=== PATIENT | male | born 1960 | race Caucasian/White ===

== ENCOUNTER 2022-08-06 02:20 | Inpatient (IN) | payer MEDICARE, MEDICAID, SELFPAY ==
[2022-08-06] VITALS (17 sets, daily range): BP systolic 65–118; BP diastolic 23–70; PULSE 49–107; RESP 8–18; TEMP 36.8–37.1; O2SAT 97–100; BMI 18.6
--- NOTE | ~2022-08-06 | XR_ITS ---
EXAMINATION: XR CHEST CLINICAL INFORMATION: Chest pain COMPARISON: None TECHNIQUE: Frontal view of the chest was obtained. FINDINGS: Cardiac leads overlie the chest. The lungs are well expanded. There is no focal consolidation, edema, or effusion. No pneumothorax. The cardiomediastinal silhouette is within normal limits. No acute osseous abnormality. XR/XR chest 1V IMPRESSION: No acute pulmonary disease.
--- NOTE | ~2022-08-06 | CT_ITS ---
EXAMINATION: CT CHEST WITH CONTRAST CT ABDOMEN AND PELVIS WITH CONTRAST CLINICAL INFORMATION: Hypotension and anemia. COMPARISON: None. TECHNIQUE: Multidetector volumetric imaging was performed through the chest, abdomen and pelvis following the administration of 85 mL of Omnipaque 350 intravenous contrast. Sagittal and coronal reformatted images were obtained on the technologist's workstation. Axial MIP volume rendering provided. This CT examination was performed using dose optimization techniques as appropriate, variously including the following: *Automated exposure control *Adjustment of mA and/or kV according to patient size (this includes techniques or standardized protocols for targeted exams where dose is matched to indication/reason for exam; i.e. extremities or head) *Use of iterative reconstruction technique DLP: 561 mGy-cm. FINDINGS: CHEST: Lungs: The central airways are patent. No consolidation. No pleural effusion or pneumothorax. There are no suspicious pulmonary nodules. Right lower lobe calcified granuloma.. Mediastinum: The heart is of normal size. There is no pericardial effusion. Central vascular structures are unremarkable. No hilar or mediastinal lymphadenopathy. Coronary Artery Calcification: None visualized on this study. Chest Wall/Axilla: No lymphadenopathy. No chest wall mass. ABDOMEN/PELVIS: Liver, Gallbladder, Biliary Tree: The liver is normal in size, shape, and attenuation. No focal hepatic lesion or biliary ductal dilatation is present. The gallbladder is unremarkable with no evidence of radiopaque gallstones, gallbladder wall thickening, or pericholecystic inflammatory changes. Pancreas: Unremarkable. Spleen: Unremarkable. Adrenal Glands: Unremarkable. Kidneys and Ureters: The kidneys are normal in size, shape, and attenuation. No hydronephrosis, hydroureter or calculi seen. No perinephric stranding. Bladder: Unremarkable. Gastrointestinal Tract: Lack of intra-abdominal fat is limiting. The stomach is unremarkable. Normal caliber small bowel. No obstruction. No colonic wall thickening or acute inflammation. No free air or free fluid. Abdominal Wall: No hernia is demonstrated. Lymphovascular Structures: Lymph nodes: Normal. Vascular: Unremarkable. Pelvic Viscera: The prostate and seminal vesicles are unremarkable. OSSEOUS STRUCTURES: No suspicious sclerotic or lytic bone lesions are identified. CT/CT abdomen pelvis w IV con IMPRESSION: No acute findings in the chest, abdomen, or pelvis. No hemorrhage. No inflammatory changes.
--- NOTE | 2022-08-06 02:33 | PC.NURSE ---
blood pressure low, MD San aware and at bedside
--- NOTE | 2022-08-06 02:33 | ECG_ITS ---
Test Reason : CHEST PAIN Blood Pressure : / mmHG Vent. Rate : 054 BPM Atrial Rate : 054 BPM P-R Int : 140 ms QRS Dur : 082 ms QT Int : 446 ms P-R-T Axes : 051 055 060 degrees QTc Int : 422 ms Sinus bradycardia Otherwise normal ECG No previous ECGs available Referred By: Generic ED Physician Electronically Signed By:Caesar Flores
--- NOTE | 2022-08-06 02:43 | ED_ITS ---
HPI - Chest Pain General Chief Complaint: Chest Pain Stated Complaint: cp Source: patient and EMS Mode of arrival: EMS Limitations: no limitations History of Present Illness HPI narrative: 62-year-old male came in by ambulance for evaluation of chest pain. Chest pain started around 01:00, 2 hours before arrival while patient was cooking his dinner the pain felt like a sharp aching pain localized to the left chest wall with no radiation, lasted for about 40 minutes no associated shortness of breath or fever or coughing. Nothing relieve the pain and nothing make it worse patient took his own medication when he had chest pain assuming that his medication will improve his symptoms, patient took amlodipine 10 mg and propanolol 80 mg and isosorbide with nitrate with no change of the patient's pain, when patient arrived to the ED was hypotensive 82/51 patient had no symptoms then. Patient declined recent travel, no lower extremity swelling or tenderness. Patient had a hard bowel movement earlier today had a small amount of bright red blood with his bowel movement, patient went to the bathroom after with no blood per rectum now. Related Data Allergies Allergy/AdvReac Type Severity Reaction Status Date / Time No Known Allergies Allergy Verified 08/06/22 02:42 Review of Systems Review of Systems: All other systems are reviewed and are negative Constitutional: Reports as per HPI and Reports no additional constitutional complaints Eyes: Reports as per HPI and Reports no additional eye complaints Reports system reviewed and no additional complaints, except as documented Cardiovascular: Reports as per HPI and Reports no additional cardiovascular complaints Respiratory: Reports as per HPI and Reports no additional respiratory complaints Gastrointestinal: Reports as per HPI and Reports no additional gastrointestinal complaints Genitourinary: Reports no additional female genitourinary complaints Musculoskeletal: Reports no additional musculoskeletal complaints Skin/Breast: Reports system reviewed and no additional complaints, except as do cu Psychiatric: Reports no additional psychiatric complaints Endocrine: Reports no additional endocrine complaints Hematologic/Lymphatic: Reports no additional hematologic/lymphatic complaints Allergic/Immunologic: Reports no additional allergic/immunologic complaints Reports system reviewed and no additional complaints, except as documented and Reports Abnormal speech present [facility] Social History Social History Advance Directives: No Advance Directives Information Provided: Yes Physical Exam Vital Signs: Vital Signs: Last Vital Signs Temp 98.2 F 08/06/22 06:19 Pulse 58 08/06/22 06:39 Resp 13 08/06/22 06:39 BP 106/61 08/06/22 06:39 Pulse Ox 99 08/06/22 06:39 O2 Del Method 08/06/22 06:39 BMI result Body Mass Index 18.6 Vital signs have been reviewed as appeared to be correct. Blood pressure normal. Heart rate normal. Respiration rate normal. Temperature normal. Ox ygen saturation normal. Appearance: Alert. Oriented X3. No acute distress. Head: Normal external exam. Normocephalic. Atraumatic. No Barclay signs noted. No raccoon eyes noted Eyes: PERRLA. EOMI. Conjunctiva and sclera normal. Eyelids normal. ENT: TM's Normal. Pharynx normal. Uvula midline. Moist mucous membranes. No trismus noted. No drooling noted. No muffled voice noted. Neck: Normal inspection. Neck supple. FROM. No adenopathy. Thyroid Normal. No meningeal signs. No neck mass noted. CVS: Normal heart rate and rhythm. Heart sound normal. No murmurs noted. Pulses normal throughout. Respiratory: No respiratory distress. Painless inspiration. Breath sounds normal. No wheezes/rales/rhonchi noted. Chest nontender. No accessory muscle usage noted or decreased air movement noted. Abdomen: Soft and nontender. Bowel sounds normal in all 4 quadrants. No dist ention noted. No organomegaly noted. No visible injury noted. Rectal exam: No external or internal hemorrhoid, no blood in the vault, stool is brown guaiac negative for blood. Back: No CVA tenderness. Full range of motion noted. Skin: Skin warm and dry. Normal skin color. Normal skin turgor. No rashes/lesions/lacerations noted. Extremities: No lower extremity edema. Extremities exhibit normal range of motion. Extremities nontender. Neuro: Oriented X 3. Cranial nerve exam: II-XII are grossly intact No motor deficit. No sensory deficit. Reflexes normal. Course Course Course Narrative: 62-year-old male came in for evaluation of left-sided chest pain, patient has negative troponin x2 with 3 hours apart and unremarkable EKG except for bradycardia patient voluntarily took his blood pressure medication amlodipine, isosorbide with nitrate, and propanolol and patient found to be hypotensive in the emergency department patient is receiving hydration, serial CBC revealing drop of 1 unit of the hemoglobin, will consider CT chest, abdomen, and pelvis rule out occult internal bleed. will monitor the patient in the ED until normalized his blood pressure. Reevaluation(s) Reevaluation #1: The case discussed with Dr. Abraham to admit him and monitor blood pressure on the floor. Unfortunately, patient is not a good candidate for the floor because he will require frequent blood pressure monitoring. The case also discussed with Dr. Rivera who suggested it to keep the patient monitored in the emergency department till 08:00 and if the blood pressure not improving he will admit him to ICU. Time: 05:24 Reevaluation #2: Patient is remaining asymptomatic no chest pain, improvement of blood pressure now is 101/38 after 2 L of fluid, still a concern of dropping a 1 unit of hemoglobin while in the emergency room with out source of bleeding, CT chest, abdomen, pelvis reveals no acute internal bleeding still waiting for the offic ial radiology reading. Time: 06:21 Medications Administered Discontinued Medications Generic Name Dose Route Start Last Admin Trade Name Freq PRN Reason Stop Dose Admin Sodium Chloride 1,000 mls @ 999 mls/hr 08/06/22 04:21 08/06/22 05:26 Ns IV 08/06/22 05:21 Infused .Q1H1M ONE Infusion Sodium Chloride 1,000 mls @ 999 mls/hr 08/06/22 04:22 08/06/22 05:25 Ns IV 08/06/22 05:22 Infused .Q1H1M ONE Infusion Iohexol 85 ml 08/06/22 06:11 08/06/22 06:11 Iohexol 350 Mg/Ml 100 Ml Infus..Btl IV 08/06/22 06:12 85 ml ONCE ONE Administration Medical Decision Making Differential Diagnosis Differential Diagnoses: The differential diagnosis associated with the presentation includes (ACS, pneumonia, pneumothorax, pulmonary embolism, pleural effusion, pericarditis, hypotension likely due to medication, anemia, GI bleed.) Lab Data 08/06/22 02:54 08/06/22 02:54 Labs: Lab Results 08/06/22 08/06/22 08/06/22 Range/Units 02:54 02:54 02:54 WBC 3.4 L (4.8-10.8) X10*3/uL RBC 3.42 L (4.60-5.80) X10*6/uL Hgb 10.3 L (14.0-18.0) g/dl Hct 29.8 L (42.0-52.0) % MCV 87.1 (80.0-98.0) fL MCH 30.1 (27.0-33.0) pg MCHC 34.6 (31.0-36.0) g/dl RDW 11.9 (11.0-16.0) % Plt Count 140 L (160-400) X10*3/uL MPV 9.8 (9.4-12.4) fL Immature Gran % (Auto) 0.3 (0.0-0.4) % Neut % (Auto) 46.2 (45-73) % Lymph % (Auto) 36.3 (20-40) % [place] % (Auto) 13.7 H (2-11) % Eos % (Auto) 2.6 (0-4) % Baso % (Auto) 0.9 (0-2) % Lymph # (Auto) 1.2 (1.2-4.9) X10*3/uL [place] # (Auto) 0.5 (0.1-1.2) X10*3/uL Eos # (Auto) 0.1 (0.0-0.4) X10*3/uL Baso # (Auto) 0.0 (0.0-0.2) X10*3/uL Abs Immat Gran (auto) 0.01 (0.00-0.03) X10*3/uL Absolute Neuts (auto) 1.6 L (2.0-8.3) x10*3/uL Absolute Nucleated RBC 0.000 (0.0-0.012) X10*3/uL Nucleated RBC % (auto) 0.0 (0.0-0.2) /100WBC D-Dimer High Sensitivty < 150 NG/ML Sodium 139 (135-145) mmol/L Potassium 4.1 (3.3-5.1) mmol/L Chloride 104 (96-108) mmol/L Carbon Dioxide 26 (22-29) mmol/L Anion Gap 13 (12-20) BUN 17 H (9-16) mg/dL Creatinine 0.80 (0.5-1.4) mg/dL Estim Creat Clear Calc 80.8 Estimated GFR > 60 Random Glucose 75 (60-115) mg/dL Calcium 8.7 (8.4-10.2) mg/dL Total Bilirubin 0.5 (0.0-1.0) mg/dL Direct Bilirubin 0.2 (0.0-0.5) mg/dL AST 27 (5-37) U/L ALT 11 (0-40) U/L Alkaline Phosphatase 64 (39-117) U/L Troponin I High Sens (<3.5-35.0) ng/L B-Natriuretic Peptide (<100) pg/mL Total Protein 6.1 L (6.5-8.0) g/dL Albumin 3.8 (3.5-5.0) g/dL Lipase 11 (8-78) U/L Urine Color Urine Appearance Urine pH (5.0-9.0) Ur Specific [place] (1.005-1.025) Urine Protein (Neg-Trace) mg/dL Urine Glucose (UA) (Negative) mg/dL Urine Ketones (Negative) mg/dL Urine Blood (Negative) Urine Nitrite (Negative) Ur Leukocyte Esterase (Negative) Stool Occult Blood (NEGATIVE) Influenza Type A (PCR) (Negative) Influenza Type B (PCR) (Negative) RSV RNA Qual (PCR) (Negative) SARS-CoV-2 RNA (RT-PCR) (Negative) 08/06/22 08/06/22 08/06/22 Range/Units 02:54 02:54 02:54 WBC (4.8-10.8) X10*3/uL RBC (4.60-5.80) X10*6/uL Hgb (14.0-18.0) g/dl Hct (42.0-52.0) % MCV (80.0-98.0) fL MCH (27.0-33.0) pg MCHC (31.0-36.0) g/dl RDW (11.0-16.0) % Plt Count (160-400) X10*3/uL MPV (9.4-12.4) fL Immature Gran % (Auto) (0.0-0.4) % Neut % (Auto) (45-73) % Lymph % (Auto) (20-40) % [place] % (Auto) (2-11) % Eos % (Auto) (0-4) % Baso % (Auto) (0-2) % Lymph # (Auto) (1.2-4.9) X10*3/uL [place] # (Auto) (0.1-1.2) X10*3/uL Eos # (Auto) (0.0-0.4) X10*3/uL Baso # (Auto) (0.0-0.2) X10*3/uL Abs Immat Gran (auto) (0.00-0.03) X10*3/uL Absolute Neuts (auto) (2.0-8.3) x10*3/uL Absolute Nucleated RBC (0.0-0.012) X10*3/uL Nucleated RBC % (auto) (0.0-0.2) /100WBC D-Dimer High Sensitivty NG/ML Sodium (135-145) mmol/L Potassium (3.3-5.1) mmol/L Chloride (96-108) mmol/L Carbon Dioxide (22-29) mmol/L Anion Gap (12-20) BUN (9-16) mg/dL Creatinine (0.5-1.4) mg/dL Estim Creat Clear Calc Estimated GFR Random Glucose (60-115) mg/dL Calcium (8.4-10.2) mg/dL Total Bilirubin (0.0-1.0) mg/dL Direct Bilirubin (0.0-0.5) mg/dL AST (5-37) U/L ALT (0-40) U/L Alkaline Phosphatase (39-117) U/L Troponin I High Sens < 3.5 (<3.5-35.0) ng/L B-Natriuretic Peptide 86 (<100) pg/mL Total Protein (6.5-8.0) g/dL Albumin (3.5-5.0) g/dL Lipase (8-78) U/L Urine Color Urine Appearance Urine pH (5.0-9.0) Ur Specific [place] (1.005-1.025) Urine Protein (Neg-Trace) mg/dL Urine Glucose (UA) (Negative) mg/dL Urine Ketones (Negative) mg/dL Urine Blood (Negative) Urine Nitrite (Negative) Ur Leukocyte Esterase (Negative) Stool Occult Blood (NEGATIVE) Influenza Type A (PCR) NEGATIVE (Negative) Influenza Type B (PCR) NEGATIVE (Negative) RSV RNA Qual (PCR) NEGATIVE (Negative) SARS-CoV-2 RNA (RT-PCR) NEGATIVE (Negative) 08/06/22 08/06/22 08/06/22 Range/Units 03:39 03:52 05:31 WBC 3.0 L (4.8-10.8) X10*3/uL RBC 3.07 L (4.60-5.80) X10*6/uL Hgb 9.2 L (14.0-18.0) g/dl Hct 27.1 L (42.0-52.0) % MCV 88.3 (80.0-98.0) fL MCH 30.0 (27.0-33.0) pg MCHC 33.9 (31.0-36.0) g/dl RDW 11.9 (11.0-16.0) % Plt Count 99 L D (160-400) X10*3/uL MPV 9.2 L (9.4-12.4) fL Immature Gran % (Auto) 0.3 (0.0-0.4) % Neut % (Auto) 46.4 (45-73) % Lymph % (Auto) 36.6 (20-40) % [place] % (Auto) 13.6 H (2-11) % Eos % (Auto) 2.4 (0-4) % Baso % (Auto) 0.7 (0-2) % Lymph # (Auto) 1.1 L (1.2-4.9) X10*3/uL [place] # (Auto) 0.4 (0.1-1.2) X10*3/uL Eos # (Auto) 0.1 (0.0-0.4) X10*3/uL Baso # (Auto) 0.0 (0.0-0.2) X10*3/uL Abs Immat Gran (auto) 0.01 (0.00-0.03) X10*3/uL Absolute Neuts (auto) 1.4 L (2.0-8.3) x10*3/uL Absolute Nucleated RBC 0.000 (0.0-0.012) X10*3/uL Nucleated RBC % (auto) 0.0 (0.0-0.2) /100WBC D-Dimer High Sensitivty NG/ML Sodium (135-145) mmol/L Potassium (3.3-5.1) mmol/L Chloride (96-108) mmol/L Carbon Dioxide (22-29) mmol/L Anion Gap (12-20) BUN (9-16) mg/dL Creatinine (0.5-1.4) mg/dL Estim Creat Clear Calc Estimated GFR Random Glucose (60-115) mg/dL Calcium (8.4-10.2) mg/dL Total Bilirubin (0.0-1.0) mg/dL Direct Bilirubin (0.0-0.5) mg/dL AST (5-37) U/L ALT (0-40) U/L Alkaline Phosphatase (39-117) U/L Troponin I High Sens (<3.5-35.0) ng/L B-Natriuretic Peptide (<100) pg/mL Total Protein (6.5-8.0) g/dL Albumin (3.5-5.0) g/dL Lipase (8-78) U/L Urine Color Yellow Urine Appearance Clear Urine pH 5.5 (5.0-9.0) Ur Specific [place] 1.015 (1.005-1.025) Urine Protein Negative (Neg-Trace) mg/dL Urine Glucose (UA) Negative (Negative) mg/dL Urine Ketones Negative (Negative) mg/dL Urine Blood Negative (Negative) Urine Nitrite Negative (Negative) Ur Leukocyte Esterase Negative (Negative) Stool Occult Blood NEGATIVE (NEGATIVE) Influenza Type A (PCR) (Negative) Influenza Type B (PCR) (Negative) RSV RNA Qual (PCR) (Negative) SARS-CoV-2 RNA (RT-PCR) (Negative) 08/06/22 Range/Units 05:31 WBC (4.8-10.8) X10*3/uL RBC (4.60-5.80) X10*6/uL Hgb (14.0-18.0) g/dl Hct (42.0-52.0) % MCV (80.0-98.0) fL MCH (27.0-33.0) pg MCHC (31.0-36.0) g/dl RDW (11.0-16.0) % Plt Count (160-400) X10*3/uL MPV (9.4-12.4) fL Immature Gran % (Auto) (0.0-0.4) % Neut % (Auto) (45-73) % Lymph % (Auto) (20-40) % [place] % (Auto) (2-11) % Eos % (Auto) (0-4) % Baso % (Auto) (0-2) % Lymph # (Auto) (1.2-4.9) X10*3/uL [place] # (Auto) (0.1-1.2) X10*3/uL Eos # (Auto) (0.0-0.4) X10*3/uL Baso # (Auto) (0.0-0.2) X10*3/uL Abs Immat Gran (auto) (0.00-0.03) X10*3/uL Absolute Neuts (auto) (2.0-8.3) x10*3/uL Absolute Nucleated RBC (0.0-0.012) X10*3/uL Nucleated RBC % (auto) (0.0-0.2) /100WBC D-Dimer High Sensitivty NG/ML Sodium (135-145) mmol/L Potassium (3.3-5.1) mmol/L Chloride (96-108) mmol/L Carbon Dioxide (22-29) mmol/L Anion Gap (12-20) BUN (9-16) mg/dL Creatinine (0.5-1.4) mg/dL Estim Creat Clear Calc Estimated GFR Random Glucose (60-115) mg/dL Calcium (8.4-10.2) mg/dL Total Bilirubin (0.0-1.0) mg/dL Direct Bilirubin (0.0-0.5) mg/dL AST (5-37) U/L ALT (0-40) U/L Alkaline Phosphatase (39-117) U/L Troponin I High Sens < 3.5 (<3.5-35.0) ng/L B-Natriuretic Peptide (<100) pg/mL Total Protein (6.5-8.0) g/dL Albumin (3.5-5.0) g/dL Lipase (8-78) U/L Urine Color Urine Appearance Urine pH (5.0-9.0) Ur Specific [place] (1.005-1.025) Urine Protein (Neg-Trace) mg/dL Urine Glucose (UA) (Negative) mg/dL Urine Ketones (Negative) mg/dL Urine Blood (Negative) Urine Nitrite (Negative) Ur Leukocyte Esterase (Negative) Stool Occult Blood (NEGATIVE) Influenza Type A (PCR) (Negative) Influenza Type B (PCR) (Negative) RSV RNA Qual (PCR) (Negative) SARS-CoV-2 RNA (RT-PCR) (Negative) Independent Interpretation I performed an independent interpretation of an: EKG (Sinus bradycardia at 54 beats per minutes, normal intervals, no ST-T changes.), Plain X-Ray (Chest: No acute pulmonary disease.) and CT Scan (Chest, abdomen, pelvis.) Radiology Impression Discussion of test interpretation with radiology: I have reviewed the radiologist's reading. Critical Care Time Critical Care Time Critical Care Time: Yes Total Critical Care Time: 60 Attestation: I spent 60 minutes providing critical care service to the patient, this including time spent at the bedside to evaluate the patient, reassess the patient, monitoring vital signs, review labs, and radiographic studies, counseling the patient/family, discussing the case with consultants, disposition the patient. Discharge Plan Discharge Clinical Impression: Chest pain, Hypotension, Anemia Patient Disposition: Admitted As Inpatient
[2022-08-06 03:01] LABS: Hematocrit 29.8 % (42.0-52.0); Hemoglobin 10.3 g/dl (14.0-18.0); Imm Gran Abs Auto 0.01 X10*3/uL (0.00-0.03); Imm Gran Pct Auto 0.3 % (0.0-0.4); Mean Corpuscular HGB Conc 34.6 g/dl (31.0-36.0); Mean Corpuscular Hemoglobin 30.1 pg (27.0-33.0); Mean Corpuscular Volume 87.1 fL (80.0-98.0); Monocytes Absolute Auto 0.5 X10*3/uL (0.1-1.2); PLT CLUMP 1; Red Blood Count 3.42 X10*6/uL (4.60-5.80); Red Cell Distribution Width 11.9 % (11.0-16.0); SCAN SMEAR FLAG 1
[2022-08-06 03:03] LABS: Basophils Percent Auto 0.9 % (0-2); Eosinophils Absolute Auto 0.1 X10*3/uL (0.0-0.4); Eosinophils Percent Auto 2.6 % (0-4); Lymphocytes Absolute Auto 1.2 X10*3/uL (1.2-4.9); Lymphocytes Percent Auto 36.3 % (20-40); Mean Platelet Volume 9.8 fL (9.4-12.4); Monocytes Percent Auto 13.7 % (2-11); Neutrophils Absolute Auto 1.6 x10*3/uL (2.0-8.3); Neutrophils Percent Auto 46.2 % (45-73)
[2022-08-06 03:04] LABS: MANUAL DIFF FLAG NO; Platelet Count 140 X10*3/uL (160-400); White Blood Count 3.4 X10*3/uL (4.8-10.8)
[2022-08-06 03:10] LABS: D Dimer High Sensitivity < 150 NG/ML
[2022-08-06 03:21] LABS: Alanine Aminotransferase 11 U/L (0-40); Albumin Level 3.8 g/dL (3.5-5.0); Alkaline Phosphatase 64 U/L (39-117); Anion Gap 13 (12-20); Aspartate Amino Transferase 27 U/L (5-37); Bilirubin Direct 0.2 mg/dL (0.0-0.5); Bilirubin Total 0.5 mg/dL (0.0-1.0); Blood Urea Nitrogen 17 mg/dL (9-16); Calcium 8.7 mg/dL (8.4-10.2); Carbon Dioxide 26 mmol/L (22-29); Chloride 104 mmol/L (96-108); Creatinine Clr Calc Pharmacy 80.8; Estimated Glomerular Filt Rate > 60; Glucose Random 75 mg/dL (60-115); Lipase 11 U/L (8-78); Potassium 4.1 mmol/L (3.3-5.1); Sodium 139 mmol/L (135-145); Total Protein 6.1 g/dL (6.5-8.0)
--- OUTSIDE RECORDS SUMMARY | 2022-08-06 03:23 | XMS_ITS | Continuity of Care Document ---
:1960 Demographics Address [address] [place] [address] Mobile Email Address Preferred Language Tunisian Marital Status Church Affiliation Zoroastrianism Race Unknown Ethnic Group Not or Author Organization [facility] Address [address] [place] [phone]- Care Team Providers Name Role Phone Not on Staff, PCP Primary Care Physician Unavailable Encounter [facility] [place] Date(s): 06/12/22 - 07/12/22 [facility] [address] [place] [phone]- [place] Allergies, Adverse Reactions, Alerts Substance Reaction Severity Status propofol Persistent Moderate Active Tylenol1 Active 1 I act weird Immunizations Not Given Vaccine Date Status Refusal Reason pneumococcal 23-valent vaccine 03/04/16 Not Given P atient Refuses Medications amLODIPine 5 mg oral tablet 5 mg, 1, tablet, By Mouth, Daily, # 30 tablet, Refills 0, Maintenance, 12/12/17 12:52:44 EDT Start Date: 12/12/17 Status: Orderedisosorbide dinitrate 40 mg oral tablet 1.5 tablet = 60 mg, By Mouth, 3 times a day, with a daily dose free interval of 14 hours, # 270 tablet, 0 Refills, Maintenance, 12/12/17 12:53:48 EDT, Tablet Start Date: 12/12/17 Status: Orderednitroglycerin 0.4 mg sublingual tablet 1 tablet = 0.4 mg, Sublingual, Every 5 minutes, PRN for chest pain, # 100 tablet, 0 Refills, Maintenance, 09/27/16 2:38:56, Tablet Start Date: 09/27/16 Status: Orderedpropranolol 40 mg oral tablet 40 mg, 1, tablet, By Mouth, 2 times a day, Refills 0, Maintenance, 12/12/17 12:53:06 EDT Start Date: 12/12/17 Status: OrderedtraZODone 50 mg oral tablet 50 mg, 1, tablet, By Mouth, 3 times a day, Refills 0, Maintenance, 02/07/18 13:30:59 EDT Start Date: 02/07/18 Status: Ordered Problem List Condition Confirmation Course Effective Dates Status Health Stat us Informant Chronic chest pain Confirmed Active Chronic Confirmed Active pancreatitis Insomnia Confirmed Active Tachycardia Confirmed Active Social History Social History Type Response Smoking Status Never smoker entered on: 12/15/15 Sex Patient Care team information Care Team PersonnelName: Not on Staff, PCP Position: [facility] Physician (General Medicine) Member Role: PCP Care Team Related PersonsName: RICKIE MICHAEL Address: home UNKNOWN Name: PATIENT STATES, NONE Name: SANDY MARTIN Address: [place] [address] Name: SINTIA MOLINA Address: [place] [address]
--- OUTSIDE RECORDS SUMMARY | 2022-08-06 03:23 | XMS_ITS | Continuity of Care Document ---
:1960 Demographics Address [address] [place] [address] Mobile Email Address Preferred Language Telugu Marital Status Adventism Affiliation Mormonism Race Unknown Ethnic Group Not or Author Organization [facility] Address [address] [place] [phone]- Care Team Providers Name Role Phone Not on Staff, PCP Primary Care Physician Unavailable [place] [facility] [place]/22 [facility] [address] [place] [phone]- [place] Allergies, Adverse Reactions, Alerts Substance Reaction [...] Team PersonnelName: Not on Staff, PCP Position: [facility] Physician (General Medicine) Member Role: PCP Care Team Related PersonsName: RICKIE MICHAEL Address: home UNKNOWN Name: PATIENT STATES, NONE Name: SANDY MARTIN Address: [place] [address] Name: SINTIA MOLINA Address: [place] [address]
--- OUTSIDE RECORDS SUMMARY | 2022-08-06 03:23 | XMS_ITS | Continuity of Care Document ---
:1960 Demographics Address [address] [place] [address] Mobile Email Address Preferred Language Anguillan Marital Status Buddhist Affiliation Orthodox Race Unknown Ethnic Group Not or Author Organization [facility] Address [address] [place] [phone]- Care Team Providers Name Role Phone Not on Staff, PCP Primary Care Physician Unavailable En[place] [facility] [place](s): 06/12/22 - 07/12/22 [facility] [address] [place] [phone]- [place] Allergies, Adverse Reactions, Alerts Substance Reaction [...] Team PersonnelName: Not on Staff, PCP Position: [facility] Physician (General Medicine) Member Role: PCP Care Team Related PersonsName: RICKIE MICHAEL Address: home UNKNOWN Name: PATIENT STATES, NONE Name: SANDY MARTIN Address: [place] [address] Name: SINTIA MOLINA Address: [place] [address]
--- OUTSIDE RECORDS SUMMARY | 2022-08-06 03:23 | XMS_ITS | Continuity of Care Document ---
:1960 Demographics Address [address] [place] [address] Mobile Email Address Preferred Language Bulgarian Marital Status Zoroastrianism Affiliation Rastafarian Race Unknown Ethnic Group Not or Author Organization [facility] Address [address] [place] [address]- Care Team Providers Name Role Phone Not on Staff, PCP Primary Care Physician Unavailable Encounter [facility] [place] Date(s): 06/25/22 - 07/25/22 [facility] [address] [place] [address] Attending Physician: Adonay Saleh Admitting Physician: Adonay Saleh Referring Physician: Adonay Saleh Allergies, Adverse Reactions, Alerts Substance Reaction Severity [...] Team PersonnelName: Not on Staff, PCP Position: [facility] Physician (General Medicine) Member Role: PCP Care Team Related PersonsName: RICKIE MICHAEL Address: home UNKNOWN Name: PATIENT STATES, NONE Name: SANDY MARTIN Address: [place] [address] Name: SINTIA MOLINA Address: [place] [address]
--- OUTSIDE RECORDS SUMMARY | 2022-08-06 03:23 | XMS_ITS | Continuity of Care Document ---
:1960 Demographics Address [address] [place] [address] Mobile Email Address Preferred Language Lithuanian Marital Status Scientology Affiliation Yazdanism Race Unknown Ethnic Group Not or Author Organization [facility] Address [address] [place] [address]- Care Team Providers Name Role Phone Not on Staff, PCP Primary Care Physician Unavailable Encounter [facility] [place] Date(s): 04/29/22 - 04/29/[address] [address]- Discharge Disposition: A-D/C Walkout Attending Physician: Not on Staff, Attending MD Admitting Physician: Not on Staff, Admitting MD Referring Physician: Not on Staff, Referring MD Allergies, Adverse Reactions, Alerts Substance Reaction Severity [...] us Informant Chronic chest pain Confirmed Active Vital Signs Most recent to oldest [Reference Range]: 1 2 Height 178 cm 178 cm (04/29/22 8:36 PM) (04/29/22 8:34 PM) Weight 62 kg 62 kg (04/29/22 8:36 PM) (04/29/22 8:34 PM) Oxygen Saturation [94-100 %] 100 % 100 % (04/29/22 8:34 PM) (04/29/22 8:22 PM) Pulse Rate [55-90 bpm] 56 bpm 62 bpm (04/29/22 8:34 PM) (04/29/22 8:22 PM) Body Mass Index [18.5-24.99 kg/m2] 19.57 kg/m2 (04/29/22 8:34 PM) Blood Pressure [90-138/55-84 mm Hg] 102/65 mm Hg (04/29/22 8:34 PM) Respiratory Rate [16-30 br/min] 16 br/min (04/29/22 8:34 PM) Temperature [96.8-100.4 DegF] 98.6 DegF (04/29/22 8:34 PM) Mode of Delivery (Oxygen) Room air (04/29/22 8:34 PM) Blood pressure sites Arm, right (04/29/22 8:34 PM) Temperature Route Oral (04/29/22 8:34 PM) Dry Weight 62 kg 62 kg (04/29/22 8:36 PM) (04/29/22 8:34 PM) Weight Obtained Via Standing scale (04/29/22 8:34 PM) Dry Weight Obtained Via Standing scale (04/29/22 8:34 PM) Social History Social History Type Response Smoking Status Never smoker entered on: 12/15/15 Sex Patient Care team information PersonnelName: Not on Staff, PCP
--- OUTSIDE RECORDS SUMMARY | 2022-08-06 03:23 | XMS_ITS | Continuity of Care Document ---
:1960 Demographics Address [address] [place] [address] Mobile Email Address Preferred Language Vietnamese Marital Status Congregational Affiliation Mosque Race Unknown Ethnic Group Not or Author Organization [facility] Address [address] [place] [address]- Care Team Providers Name Role Phone Not on Staff, PCP Primary Care Physician Unavailable Encounter [facility] [place] Date(s): 06/24/22 - 07/24/22 [facility] [address] [place] [phone]- [place] Allergies, Adverse Reactions, Alerts Substance Reaction [...] Team PersonnelName: Not on Staff, PCP Position: [facility] Physician (General Medicine) Member Role: PCP Care Team Related PersonsName: RICKIE MICHAEL Address: home UNKNOWN Name: PATIENT STATES, NONE Name: SANDY MARTIN Address: [place] [address] Name: SINTIA MOLINA Address: [place] [address]
--- OUTSIDE RECORDS SUMMARY | 2022-08-06 03:23 | XMS_ITS | Continuity of Care Document ---
:1960 Demographics Address [address] [place] [address] Mobile Email Address Preferred Language [place] Marital Status Mormon Affiliation None Race Unknown Ethnic Group Not or Author Organization [facility] Address [address] [place] [id number]- Care Team Providers Name Role Phone Not on Staff, PCP Primary Care Physician Unavailable Encounter [facility] Date(s): 03/27/22 - 04/26/22 [facility] [address] [place] [id number]- Allergies, Adverse Reactions, Alerts Substance Reaction Severity [...] us Informant Chronic chest pain Confirmed Active Social History Social History Type Response Smoking Status Never smoker entered on: 12/15/15 Sex Patient Care team information PersonnelName: Not on Staff, PCP
[2022-08-06 03:24] LABS: B Type Natriuretic Peptide 86 pg/mL (<100)
[2022-08-06 03:30] LABS: Troponin-I High Sensitivity < 3.5 ng/L (<3.5-35.0)
[2022-08-06 03:37] LABS: Influenza A PCR NEGATIVE (Negative); Influenza B PCR NEGATIVE (Negative); Resp Syncy Virus RNA Qual PCR NEGATIVE (Negative); SARS COV2 PCR INHOUSE NEGATIVE (Negative)
[2022-08-06 03:45] LABS: OBS Int Ctl Valid YES; OBS1 NEGATIVE (NEGATIVE)
[2022-08-06 04:00] LABS: Appearance Urine Clear; Color Urine Yellow; Glucose Urine UA Negative (Negative); Leukocyte Esterase Urine Negative (Negative); Nitrite Urine Negative (Negative); PH 5.5 (5.0-9.0); Specific Gravity - Urine 1.015 (1.005-1.025); Urine Blood Negative (Negative); Urine Ketones Negative (Negative); Urine Protein Negative (Neg-Trace)
[2022-08-06] MEDS: 0.9 % Sodium Chloride 1,000 ML 999 ML IV ×3 (04:25→08:00)
--- NOTE | 2022-08-06 04:34 | PC.NURSE ---
Pt blood pressure continues to remain low despite receiving one liter of NS. MD aware, second liter of fluids ordered and given per MAR. Pt reports no symptoms and is in no apparent outward distress
[2022-08-06 05:35] LABS: MANUAL DIFF FLAG NO
[2022-08-06 05:36] LABS: Basophils Percent Auto 0.7 % (0-2); Eosinophils Absolute Auto 0.1 X10*3/uL (0.0-0.4); Eosinophils Percent Auto 2.4 % (0-4); Hematocrit 27.1 % (42.0-52.0); Hemoglobin 9.2 g/dl (14.0-18.0); Imm Gran Abs Auto 0.01 X10*3/uL (0.00-0.03); Imm Gran Pct Auto 0.3 % (0.0-0.4); Lymphocytes Absolute Auto 1.1 X10*3/uL (1.2-4.9); Lymphocytes Percent Auto 36.6 % (20-40); Mean Corpuscular HGB Conc 33.9 g/dl (31.0-36.0); Mean Corpuscular Volume 88.3 fL (80.0-98.0); Mean Platelet Volume 9.2 fL (9.4-12.4); Monocytes Absolute Auto 0.4 X10*3/uL (0.1-1.2); Monocytes Percent Auto 13.6 % (2-11); Neutrophils Absolute Auto 1.4 x10*3/uL (2.0-8.3); Neutrophils Percent Auto 46.4 % (45-73); Red Blood Count 3.07 X10*6/uL (4.60-5.80); Red Cell Distribution Width 11.9 % (11.0-16.0)
[2022-08-06 06:01] LABS: Troponin-I High Sensitivity < 3.5 ng/L (<3.5-35.0)
[2022-08-06 06:07] LABS: Platelet Count 99 X10*3/uL (160-400)
[2022-08-06] MEDS: iohexoL 350 MG/ML 100 ML INFUS..BTL 85 ML IV (06:11)
--- NOTE | 2022-08-06 06:24 | PC.NURSE ---
pt continues to have low BP, provider aware. Type and screen being completed at this time for possible blood transfusion. Pt reports no dizziness or feelings of lightheadedness
--- NOTE | 2022-08-06 06:27 | PC.NURSE ---
this RN spoke with Dr. San, discussed need for admission due to blood pressure. Pt reports his blood pressure has never been this low
--- NOTE | 2022-08-06 06:34 | MHC.EDTECH ---
PT SAID HE WAS HUNGRY ,I ASKED JOYCELYN JUÁREZ IF I COULD GIVE PT SOMETHING TO EAT ,JOYCELYN JUÁREZ SAID YES I GIVE PT GRAM CRACKERS AND PEANUT BUTTER TO EAT ,ALSO A WARM BLANKET .
--- NOTE | 2022-08-06 07:00 | CA_ITS ---
Transthoracic Echocardiogram Patient (Last, First, Middle): Matthew Real, Gender: Male Date of : 1960 Age: 62 Procedure Date: 08/06/2022 Procedure Type: Transthoracic Echocardiogram Location: ICU Height: 177.8 cm Weight: 58.97 kg BSA: 1.74 m2 Heart Rate: bpm BP: 101 / 43 mmHg Head Of Research & Insights: Referring MD: Ajith Rivera MD Symptoms: hypotension Study Quality: Good ECG Rhythm: Sinus Conclusions: - Normal left ventricular size, thickness, and systolic function. The visually estimated ejection fraction is between 60-65%. - The basal inferior segment is hypokinetic. - Mildly increased right ventricular cavity size. There is normal right ventricular systolic function. - The left atrium is severely dilated. Interatrial shunt cannot be excluded by color Doppler. RA is dilated. Findings Left Ventricle Normal left ventricular size, thickness, and systolic function. The visually estimated ejection fraction is between 60-65%. There is evidence of regional wall motion abnormalities. Diastolic function is normal for age. Wall Motion Rest Echo Findings The basal inferior segment is hypokinetic. Right Ventricle Mildly increased right ventricular cavity size. There is normal right ventricular systolic function. Atria The left atrium is severely dilated. Interatrial shunt cannot be excluded by color Doppler. RA is dilated. Aortic Valve There is no aortic valve stenosis. There is trace (trivial) aortic valve regurgitation. Mitral Valve Normal mitral valve structure and function. There is mild mitral valve regurgitation. There is no mitral valve stenosis. Pulmonic Valve Normal pulmonic valve structure and function. There is no pulmonic valve regurgitation. Tricuspid Valve Normal tricuspid valve structure and function. There is trace tricuspid valve regurgitation. Tricuspid regurgitation envelope is inadequate for calculation of right ventricular systolic pressure. Normal right atrial pressure. Great Vessels All visible segments of the aorta are normal in size. Venous The inferior vena cava is normal in size and collapses greater than 50% with inspiration. Pericardium/Pleural There is no evidence of pericardial effusion. Prior Study Comparison No prior study available for comparison. Measurements 2D Linear Measurements IVSd: 0.83 0.6-0.9/0.6-1.0 cm LVIDd: 4.96 3.9-5.3/4.2-5.9 cm LVIDd Index: 2.85 2.4-3.2/2.2-3.1 cm/m2 LVIDs: 2.53 2.0-3.6 cm LVPWd: 0.85 0.7-1.1 cm LA Diam: 3.80 2.7-3.8/3.0-4.0 cm LAIDs Index: 2.18 1.5-2.3 cm/m2 LV Mass: 176.60 67-162/88-224 g LV Mass Index: 101.49 43-95/49-115 g/m2 LVOT Diam: 2.10 3.0+(-)1.3 cm Mitral Valve MV Pk E: 0.89 MV PK A: 0.42 MV Decel Time: 309.00 E/A: 2.10 E'Lateral: 15.30 E'Medial: 9.25 E/E' Med: 9.60 E/E' Lat: 5.80 PHT: 91.00 MVA PHT: 2.42 Decel [place]: 2.87 Aortic Valve AoV Pk Sergio: 1.44 AoV Mn Sergio: 0.94 AoV VTI: 0.40 AoV Pk Grad: 8.00 Aov Mn Grad: 4.00 ASHLEY Cont.VTI: 2.82 LVOT LVOT Pk Sergio: 1.34 LVOT Mn Sergio: 0.78 LVOT VTI: 0.33 LVOT Pk Grad: 7.00 LVOT Mn Grad: 3.00 LVOT Diam: 2.10 LVOT Area: 3.46 Diastolic Function MV Pk E: 0.89 MV Pk A: 0.42 E/A: 2.10 E'Medial: 9.25 E/E' Med: 9.60 E' Laterial: 15.30 E/E' Lat: 5.80 Right Ventricle TAPSE (mm): 32.60 TVS' Sergio: 15.70 Tricuspid Valve TR Pk Sergio: 2.10 TR Pk Grad: 18.00 Great Vessels Aorta Sinus of Valsalva: 3.10 2.0-3.5 cm Pulmonary Valve PV Pk Sergio: 1.05 Peak PV Grad: 4.00 Updated in Other Vendor System with Status of Final Caesar Flores MD electronically signed on 08/06/2022 3:26:48 PM with status of Final
[2022-08-06 07:13] LABS: Prothrombin Time 11.9 SEC (10.0-13.1)
[2022-08-06 07:16] LABS: Partial Thromboplastin Time 30.8 SEC (26.0-36.4)
--- NOTE | 2022-08-06 07:53 | PHA.MEDREC ---
Pharmacy Consult ? Medication Reconciliation Pharmacy has completed the medication reconciliation. Patient reports no longer taking pregablin due to side effects. Still takes dutasteride, but hasn't been able to renew prescription with pharmacy.
--- NOTE | 2022-08-06 08:41 | PC.NURSE ---
b/p high 70s over low 30s, 1L N/S with pressure bag and trendelenburg given as documented, pt a+o x4, denies c/p/ferris/dizziness. b/p 74/[address] Rivera and Dr. Dubose aware. will continue to observe.
[2022-08-06] MEDS: Heparin Sodium,Porcine 5,000 UNIT/ML VIAL 5000 UNIT SUBCUT (09:19)
[2022-08-06 09:20] LABS: Phosphorus 3.3 mg/dL (2.7-4.5)
--- NOTE | 2022-08-06 09:33 | PC.NURSE ---
most recent b/p 92/53, NS on monitor. RN TO RN report given to Genny. 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 pt aware of plan
--- NOTE | 2022-08-06 11:00 | P.HPCC_ITS ---
History of Present Illness Date of Service: 08/06/22 Chief Complaint: Hypotension 62-year-old gentleman with underlying history of hypertension and BPH admitted from emergency room with complains of postprandial chest pain. His initial was negative for any EKG changes. His troponins were flight. His labs were otherwise unremarkable. Patient has had a normal CT chest and abdomen. However, he has had persistent hypotension with systolic blood pressure in 70s and 80s. His white cell count was normal and was no indication of a septic source. However patient remained persistently hypotensive despite 2 L of IV fluids. He was monitored in ER overnight, however his hypotension persisted and he was admitted to intensive care unit for further workup and monitoring. Patient denies any other complaints. Review of Systems Constitutional: Constitutional: Denies daytime sleepiness, Denies excessive sweating, Denies fatigue, Denies fever(s), Denies lethargy, Denies malaise, Denies night sweats, Denies snoring and Denies weight loss Eyes: Eyes: Denies blurry vision and Denies itchy eyes ENT: Denies nasal congestion, Denies post nasal drip, Denies sinus pain, Denies sinus pressure and Denies other ( Thrush) Cardiovascular: Cardiovascular: Denies chest pain, Denies pedal edema, Denies dyspnea, Denies orthopnea and Denies paroxysmal nocturnal dyspnea Respiratory: Respiratory: Denies cough, Denies hemoptysis, Denies excessive phlegm production, Denies dyspnea, Denies snoring and Denies wheezing Gastrointestinal: Gastrointestinal: Denies abdominal pain and Denies heartburn Musculoskeletal: Musculoskeletal: Denies myalgias, Denies arthralgias and Denies joint swelling Integumentary/Breasts: Skin/Breast: Denies rash Neurologic: Denies memory loss and Denies seizure-like activity Psychiatric: Psychiatric: Denies abnormal sleep pattern, Denies anxiety and Denies memory loss Endocrine: Endocrine: Denies excessive sweating, Denies fatigue and Denies heat intolerance Hematologic/Lymphatic: Hematologic/Lymphatic: Denies easy bruising Allergic/Immunologic: Allergic/Immunologic: Denies itchy eyes, Denies seasonal rhinorrhea and Denies wheezing PMFSH Social History Social History Household Members: Friend(s) Housing: House Do you presently have visiting nurse or other home services: No Patient Tobacco Use Status: Former Tobacco user Quit Date: 1994 Tobacco use type: Cigarette Smoked in Last 30 Days: No Patient Interested in Nicotine Replacement: No Patient Given Instructions on How to Stop Smoking: No Second Hand Smoke Exposure: No Use of substances other than those prescribed or required for medical reasons: Yes Substance Use Type: Marijuana Substance Use Frequency: Occasionally Last Used Substance: Weeks (ago) Last Used Substance Other:: 1 Currently Displaying Signs/Symptoms of Drug Intoxication Withdrawal: No Any prior treatment program specific to substance use: No Have you been hit, kicked, punched, or otherwise hurt by someone within the past year? If so, by whom?: No Do you feel safe in your current relationship?: No Is there a partner from a previous relationship who is making you feel unsafe now?: No Are you made to feel afraid or neglected: No Advance Directives: No Advance Directives Information Provided: Yes Do you have thoughts of harming others: None Do you have a plan to hurt others: No Plan Recently lost weight without trying: Yes How much weight loss: 14-23 pounds Eating poorly because of decreased appetite: Yes Nutrition screen score: 5 Nutrition Risks: No Nutritional Risk Poor oral hygiene: Yes Meds Allergies Allergy/AdvReac Type Severity Reaction Status Date / Time No Known Allergies Allergy Verified 08/06/22 02:42 Active Medications: Current Medications Heparin Sodium (Porcine) (Heparin Sodium,Porcine 5,000 Unit/Ml Vial) 5,000 unit SUBCUT Q8H [facility] Last Admin: 08/06/22 09:19 Dose: 5,000 unit Pharmacy Consult (Consult Rx Perform Med Rec) 1 each MISCELLANE ONCE PRN PRN Reason: Consult order Home Medications Medication Instructions Recorded Confirmed Last Taken Type amlodipine 5 mg tablet 1 tab PO DAILY 08/06/22 08/06/22 08/05/22 History dutasteride 0.5 mg capsule 1 cap PO DAILY 08/06/22 08/06/22 2 Weeks Ago History ~07/23/22 estradiol 1 mg tablet 0.5 tab PO Q OTHER DAY 08/06/22 08/06/22 08/05/22 History isosorbide dinitrate 30 mg tablet 30 mg PO DAILY PRN Angina 08/06/22 08/06/22 08/05/22 History milk thistle 500 mg capsule 500 mg PO DAILY 08/06/22 08/06/22 08/05/22 History propranolol 80 mg tablet 120 mg PO BEDTIME 08/06/22 08/06/22 08/05/22 History spironolactone 100 mg tablet 0.5 tab PO Q OTHER DAY 08/06/22 08/06/22 08/05/22 History trazodone 50 mg tablet 1 tab PO BEDTIME 08/06/22 08/06/22 08/05/22 History Physical Exam Vital Signs: Vital Signs: Last Vital Signs Temp 98.2 F 08/06/22 06:19 Pulse 107 H 08/06/22 10:00 Resp 11 L 08/06/22 09:22 BP 101/43 L 08/06/22 10:00 Pulse Ox 98 08/06/22 10:00 O2 Del Method 08/06/22 10:00 BMI result Body Mass Index 18.6 Const: General: no acute distress and alert Nutritional Appearance: not obese Orientation/consciousness: Other orientation findings ( oriented) HEENT: Head: Yes atraumatic Eyes: General: appearance normal, both eyes and all related structures Sclerae: sclerae normal EOM: EOMs intact bilaterally Neck: Neck: Yes supple Lymphatic: no lymphadenopathy noted Resp: Effort & Inspection: normal respiratory effort and no use of accessory muscles Auscultation: clear to auscultation bilaterally Cardio: Rate: regular rate Rhythm: regular rhythm Heart sounds: no gallops, no murmurs and no rubs GI: Palpation (GI): Soft to palpation and Other GI palpation findings present ( nontender) Skin: General skin exam: other ( warm) Rashes: no rashes Extrem: General: No clubbing, No cyanosis and No edema Results Labs 08/06/22 05:31 08/06/22 02:54 Labs: Laboratory Results - last 24 hr 08/06/22 08/06/22 08/06/22 02:54 02:54 02:54 MCV 87.1 MCH 30.1 MCHC 34.6 RDW 11.9 Plt Count 140 L MPV 9.8 Immature Gran % (Auto) 0.3 Neut % (Auto) 46.2 Lymph % (Auto) 36.3 [place] % (Auto) 13.7 H Eos % (Auto) 2.6 Baso % (Auto) 0.9 Lymph # (Auto) 1.2 [place] # (Auto) 0.5 Eos # (Auto) 0.1 Baso # (Auto) 0.0 Abs Immat Gran (auto) 0.01 Absolute Neuts (auto) 1.6 L Absolute Nucleated RBC 0.000 Nucleated RBC % (auto) 0.0 PT INR APTT D-Dimer High Sensitivty < 150 Anion Gap 13 Estim Creat Clear Calc 80.8 Estimated GFR > 60 Random Glucose 75 Calcium 8.7 Phosphorus Magnesium Total Bilirubin 0.5 Direct Bilirubin 0.2 AST 27 ALT 11 Alkaline Phosphatase 64 Troponin I High Sens B-Natriuretic Peptide Total Protein 6.1 L Albumin 3.8 Lipase 11 Urine Color Urine Appearance Urine pH Ur Specific [place] Urine Protein Urine Glucose (UA) Urine Ketones Urine Blood Urine Nitrite Ur Leukocyte Esterase Stool Occult Blood Influenza Type A (PCR) Influenza Type B (PCR) RSV RNA Qual (PCR) SARS-CoV-2 RNA (RT-PCR) Blood Type Antibody Screen 08/06/22 08/06/22 08/06/22 02:54 02:54 02:54 MCV MCH MCHC RDW Plt Count MPV Immature Gran % (Auto) Neut % (Auto) Lymph % (Auto) [place] % (Auto) Eos % (Auto) Baso % (Auto) Lymph # (Auto) [place] # (Auto) Eos # (Auto) Baso # (Auto) Abs Immat Gran (auto) Absolute Neuts (auto) Absolute Nucleated RBC Nucleated RBC % (auto) PT INR APTT D-Dimer High Sensitivty Anion Gap Estim Creat Clear Calc Estimated GFR Random Glucose Calcium Phosphorus Magnesium Total Bilirubin Direct Bilirubin AST ALT Alkaline Phosphatase Troponin I High Sens < 3.5 B-Natriuretic Peptide 86 Total Protein Albumin Lipase Urine Color Urine Appearance Urine pH Ur Specific [place] Urine Protein Urine Glucose (UA) Urine Ketones Urine Blood Urine Nitrite Ur Leukocyte Esterase Stool Occult Blood Influenza Type A (PCR) NEGATIVE Influenza Type B (PCR) NEGATIVE RSV RNA Qual (PCR) NEGATIVE SARS-CoV-2 RNA (RT-PCR) NEGATIVE Blood Type Antibody Screen 08/06/22 08/06/22 08/06/22 03:39 03:52 05:31 MCV 88.3 MCH 30.0 MCHC 33.9 RDW 11.9 Plt Count 99 L D MPV 9.2 L Immature Gran % (Auto) 0.3 Neut % (Auto) 46.4 Lymph % (Auto) 36.6 [place] % (Auto) 13.6 H Eos % (Auto) 2.4 Baso % (Auto) 0.7 Lymph # (Auto) 1.1 L [place] # (Auto) 0.4 Eos # (Auto) 0.1 Baso # (Auto) 0.0 Abs Immat Gran (auto) 0.01 Absolute Neuts (auto) 1.4 L Absolute Nucleated RBC 0.000 Nucleated RBC % (auto) 0.0 PT INR APTT D-Dimer High Sensitivty Anion Gap Estim Creat Clear Calc Estimated GFR Random Glucose Calcium Phosphorus Magnesium Total Bilirubin Direct Bilirubin AST ALT Alkaline Phosphatase Troponin I High Sens B-Natriuretic Peptide Total Protein Albumin Lipase Urine Color Yellow Urine Appearance Clear Urine pH 5.5 Ur Specific [place] 1.015 Urine Protein Negative Urine Glucose (UA) Negative Urine Ketones Negative Urine Blood Negative Urine Nitrite Negative Ur Leukocyte Esterase Negative Stool Occult Blood NEGATIVE Influenza Type A (PCR) Influenza Type B (PCR) RSV RNA Qual (PCR) SARS-CoV-2 RNA (RT-PCR) Blood Type Antibody Screen 08/06/22 08/06/22 08/06/22 05:31 06:27 06:27 MCV MCH MCHC RDW Plt Count MPV Immature Gran % (Auto) Neut % (Auto) Lymph % (Auto) [place] % (Auto) Eos % (Auto) Baso % (Auto) Lymph # (Auto) [place] # (Auto) Eos # (Auto) Baso # (Auto) Abs Immat Gran (auto) Absolute Neuts (auto) Absolute Nucleated RBC Nucleated RBC % (auto) PT 11.9 INR 1.0 APTT 30.8 D-Dimer High Sensitivty Anion Gap Estim Creat Clear Calc Estimated GFR Random Glucose Calcium Phosphorus Magnesium Total Bilirubin Direct Bilirubin AST ALT Alkaline Phosphatase Troponin I High Sens < 3.5 B-Natriuretic Peptide Total Protein Albumin Lipase Urine Color Urine Appearance Urine pH Ur Specific [place] Urine Protein Urine Glucose (UA) Urine Ketones Urine Blood Urine Nitrite Ur Leukocyte Esterase Stool Occult Blood Influenza Type A (PCR) Influenza Type B (PCR) RSV RNA Qual (PCR) SARS-CoV-2 RNA (RT-PCR) Blood Type O Positive Antibody Screen NEGATIVE 08/06/22 08:51 MCV MCH MCHC RDW Plt Count MPV Immature Gran % (Auto) Neut % (Auto) Lymph % (Auto) [place] % (Auto) Eos % (Auto) Baso % (Auto) Lymph # (Auto) [place] # (Auto) Eos # (Auto) Baso # (Auto) Abs Immat Gran (auto) Absolute Neuts (auto) Absolute Nucleated RBC Nucleated RBC % (auto) PT INR APTT D-Dimer High Sensitivty Anion Gap Estim Creat Clear Calc Estimated GFR Random Glucose Calcium Phosphorus 3.3 Magnesium 2.0 Total Bilirubin Direct Bilirubin AST ALT Alkaline Phosphatase Troponin I High Sens B-Natriuretic Peptide Total Protein Albumin Lipase Urine Color Urine Appearance Urine pH Ur Specific [place] Urine Protein Urine Glucose (UA) Urine Ketones Urine Blood Urine Nitrite Ur Leukocyte Esterase Stool Occult Blood Influenza Type A (PCR) Influenza Type B (PCR) RSV RNA Qual (PCR) SARS-CoV-2 RNA (RT-PCR) Blood Type Antibody Screen Imaging Radiologist's Impressions: Impressions Chest X-Ray 08/06/22 03:30 IMPRESSION: No acute pulmonary disease. Chest CT 08/06/22 06:20 IMPRESSION: No acute findings in the chest, abdomen, or pelvis. No hemorrhage. No inflammatory changes. Abdomen/Pelvis CT 08/06/22 06:21 IMPRESSION: No acute findings in the chest, abdomen, or pelvis. No hemorrhage. No inflammatory changes. Assessment and Plan (1) Hypotension: Status: Acute Plan Assessment: 62-year-old gentleman been admitted with persistent hypotension with suspicion of a toxic ingestion, no septic or cardiac source at this time. Plan: Neuro: No acute issues. Cardiac: Persistent hypotension. Possible and effect from patient taking all his blood pressure medications at 1 time, though it toxic ingestion is suspected. Flat troponins. No acute GI changes. CT chest and abdomen a normal. Poor response to initial rate fluid resuscitation. Patient is mentating appropriately. Will continue to monitor clinically. Pulmonary: No acute issues. Renal: No acute issues. Endo: No acute issues. GI: No acute issues. ID: No acute issues Heme/Onc: No acute issues. Psych: No acute issues. Miscellaneous: No acute issues. Prophylaxis: Heparin Diet: regular Time Spent With Patient Time: Total time managing care of this patient today ____ minutes.
--- NOTE | 2022-08-06 11:59 | PM.DS ---
DS: Providers Provider Date of Service: 08/06/22 Date of admission: 08/06/22 08:11 Primary care physician: Atul Claudio MD Attending physician on discharge: Ajith Rivera DS: Diagnosis Discharge Diagnosis (1) Hypotension: Status: Acute DS: Summary Hospital Course Hospital Course: 62-year-old gentleman with underlying history of hypertension and BPH admitted from emergency room with complains of postprandial chest pain. His initial was negative for any EKG changes. His troponins were flight. His labs were otherwise unremarkable. Patient has had a normal CT chest and abdomen. However, he has had persistent hypotension with systolic blood pressure in 70s and 80s. His white cell count was normal and was no indication of a septic source. However patient remained persistently hypotensive despite 2 L of IV fluids. He was monitored in ER overnight, however his hypotension persisted and he was admitted to intensive care unit for further workup and monitoring. Patient denied any other complaints. over several hours in the intensive care unit patient's blood pressure has improved to systolic cough around 100. At that time, patient did not want to stay any for further workup monitoring and left against medical advise Time Spent with Patient Time attestation: Total time managing care of this patient today ____ minutes. Discharge coordination time: Less than 30 minutes Quality: Safe Use of Opioids Does Pt have an Active Cancer Diagnosis on the Problem List?: No Quality: Stroke Does the patient have a stroke diagnosis?: No Physical Exam Vital Signs: Vital Signs: Last Vital Signs Temp 98.2 F 08/06/22 06:19 Pulse 54 08/06/22 11:00 Resp 18 08/06/22 11:00 BP 118/70 08/06/22 11:00 Pulse Ox 100 08/06/22 11:00 O2 Del Method 08/06/22 11:00 BMI result Body Mass Index 18.6 DS: Data Data Completed and Pending Labs on day of discharge: Laboratory Results - last 24 hr 08/06/22 08/06/22 08/06/22 02:54 02:54 02:54 WBC 3.4 L RBC 3.42 L Hgb 10.3 L Hct 29.8 L MCV 87.1 MCH 30.1 MCHC 34.6 RDW 11.9 Plt Count 140 L MPV 9.8 Immature Gran % (Auto) 0.3 Neut % (Auto) 46.2 Lymph % (Auto) 36.3 [place] % (Auto) 13.7 H Eos % (Auto) 2.6 Baso % (Auto) 0.9 Lymph # (Auto) 1.2 [place] # (Auto) 0.5 Eos # (Auto) 0.1 Baso # (Auto) 0.0 Abs Immat Gran (auto) 0.01 Absolute Neuts (auto) 1.6 L Absolute Nucleated RBC 0.000 Nucleated RBC % (auto) 0.0 PT INR APTT D-Dimer High Sensitivty < 150 Sodium 139 Potassium 4.1 Chloride 104 Carbon Dioxide 26 Anion Gap 13 BUN 17 H Creatinine 0.80 Estim Creat Clear Calc 80.8 Estimated GFR > 60 Random Glucose 75 Calcium 8.7 Phosphorus Magnesium Total Bilirubin 0.5 Direct Bilirubin 0.2 AST 27 ALT 11 Alkaline Phosphatase 64 Troponin I High Sens B-Natriuretic Peptide Total Protein 6.1 L Albumin 3.8 Lipase 11 Urine Color Urine Appearance Urine pH Ur Specific [place] Urine Protein Urine Glucose (UA) Urine Ketones Urine Blood Urine Nitrite Ur Leukocyte Esterase Stool Occult Blood Influenza Type A (PCR) Influenza Type B (PCR) RSV RNA Qual (PCR) SARS-CoV-2 RNA (RT-PCR) Blood Type Antibody Screen 08/06/22 08/06/22 08/06/22 02:54 02:54 02:54 WBC RBC Hgb Hct MCV MCH MCHC RDW Plt Count MPV Immature Gran % (Auto) Neut % (Auto) Lymph % (Auto) [place] % (Auto) Eos % (Auto) Baso % (Auto) Lymph # (Auto) [place] # (Auto) Eos # (Auto) Baso # (Auto) Abs Immat Gran (auto) Absolute Neuts (auto) Absolute Nucleated RBC Nucleated RBC % (auto) PT INR APTT D-Dimer High Sensitivty Sodium Potassium Chloride Carbon Dioxide Anion Gap BUN Creatinine Estim Creat Clear Calc Estimated GFR Random Glucose Calcium Phosphorus Magnesium Total Bilirubin Direct Bilirubin AST ALT Alkaline Phosphatase Troponin I High Sens < 3.5 B-Natriuretic Peptide 86 Total Protein Albumin Lipase Urine Color Urine Appearance Urine pH Ur Specific [place] Urine Protein Urine Glucose (UA) Urine Ketones Urine Blood Urine Nitrite Ur Leukocyte Esterase Stool Occult Blood Influenza Type A (PCR) NEGATIVE Influenza Type B (PCR) NEGATIVE RSV RNA Qual (PCR) NEGATIVE SARS-CoV-2 RNA (RT-PCR) NEGATIVE Blood Type Antibody Screen 08/06/22 08/06/2223 03:39 03:52 05:31 WBC 3.0 L RBC 3.07 L Hgb 9.2 L Hct 27.1 L MCV 88.3 MCH 30.0 MCHC 33.9 RDW 11.9 Plt Count 99 L D MPV 9.2 L Immature Gran % (Auto) 0.3 Neut % (Auto) 46.4 Lymph % (Auto) 36.6 [place] % (Auto) 13.6 H Eos % (Auto) 2.4 Baso % (Auto) 0.7 Lymph # (Auto) 1.1 L [place] # (Auto) 0.4 Eos # (Auto) 0.1 Baso # (Auto) 0.0 Abs Immat Gran (auto) 0.01 Absolute Neuts (auto) 1.4 L Absolute Nucleated RBC 0.000 Nucleated RBC % (auto) 0.0 PT INR APTT D-Dimer High Sensitivty Sodium Potassium Chloride Carbon Dioxide Anion Gap BUN Creatinine Estim Creat Clear Calc Estimated GFR Random Glucose Calcium Phosphorus Magnesium Total Bilirubin Direct Bilirubin AST ALT Alkaline Phosphatase Troponin I High Sens B-Natriuretic Peptide Total Protein Albumin Lipase Urine Color Yellow Urine Appearance Clear Urine pH 5.5 Ur Specific [place] 1.015 Urine Protein Negative Urine Glucose (UA) Negative Urine Ketones Negative Urine Blood Negative Urine Nitrite Negative Ur Leukocyte Esterase Negative Stool Occult Blood NEGATIVE Influenza Type A (PCR) Influenza Type B (PCR) RSV RNA Qual (PCR) SARS-CoV-2 RNA (RT-PCR) Blood Type Antibody Screen 08/06/22 08/06/22 08/06/22 05:31 06:27 06:27 WBC RBC Hgb Hct MCV MCH MCHC RDW Plt Count MPV Immature Gran % (Auto) Neut % (Auto) Lymph % (Auto) [place] % (Auto) Eos % (Auto) Baso % (Auto) Lymph # (Auto) [place] # (Auto) Eos # (Auto) Baso # (Auto) Abs Immat Gran (auto) Absolute Neuts (auto) Absolute Nucleated RBC Nucleated RBC % (auto) PT 11.9 INR 1.0 APTT 30.8 D-Dimer High Sensitivty Sodium Potassium Chloride Carbon Dioxide Anion Gap BUN Creatinine Estim Creat Clear Calc Estimated GFR Random Glucose Calcium Phosphorus Magnesium Total Bilirubin Direct Bilirubin AST ALT Alkaline Phosphatase Troponin I High Sens < 3.5 B-Natriuretic Peptide Total Protein Albumin Lipase Urine Color Urine Appearance Urine pH Ur Specific [place] Urine Protein Urine Glucose (UA) Urine Ketones Urine Blood Urine Nitrite Ur Leukocyte Esterase Stool Occult Blood Influenza Type A (PCR) Influenza Type B (PCR) RSV RNA Qual (PCR) SARS-CoV-2 RNA (RT-PCR) Blood Type O Positive Antibody Screen NEGATIVE 08/06/22 08:51 WBC RBC Hgb Hct MCV MCH MCHC RDW Plt Count MPV Immature Gran % (Auto) Neut % (Auto) Lymph % (Auto) [place] % (Auto) Eos % (Auto) Baso % (Auto) Lymph # (Auto) [place] # (Auto) Eos # (Auto) Baso # (Auto) Abs Immat Gran (auto) Absolute Neuts (auto) Absolute Nucleated RBC Nucleated RBC % (auto) PT INR APTT D-Dimer High Sensitivty Sodium Potassium Chloride Carbon Dioxide Anion Gap BUN Creatinine Estim Creat Clear Calc Estimated GFR Random Glucose Calcium Phosphorus 3.3 Magnesium 2.0 Total Bilirubin Direct Bilirubin AST ALT Alkaline Phosphatase Troponin I High Sens B-Natriuretic Peptide Total Protein Albumin Lipase Urine Color Urine Appearance Urine pH Ur Specific [place] Urine Protein Urine Glucose (UA) Urine Ketones Urine Blood Urine Nitrite Ur Leukocyte Esterase Stool Occult Blood Influenza Type A (PCR) Influenza Type B (PCR) RSV RNA Qual (PCR) SARS-CoV-2 RNA (RT-PCR) Blood Type Antibody Screen Discharge Plan Discharge Anticipated Discharge Date/Time: 08/06/22 12:03 Patient Disposition: Home, Self-Care Discharge Diagnosis: Hypotension Referrals: Atul Claudio MD [Primary Care Provider] - 1 Week Discharge Medications: Continued propranolol 80 mg tablet 120 mg PO BEDTIME amlodipine 5 mg tablet 1 tab PO DAILY isosorbide dinitrate 30 mg tablet 30 mg PO DAILY PRN (Reason: Angina) estradiol 1 mg tablet 0.5 tab PO Q OTHER DAY dutasteride 0.5 mg capsule 1 cap PO DAILY Discontinued trazodone 50 mg tablet 1 tab PO BEDTIME milk thistle 500 mg Capsule 500 mg PO DAILY Rx Instructions: give with meal/snack spironolactone 100 mg tablet 0.5 tab PO Q OTHER DAY Discharge Orders: Discharge Order (Routine); Ordered 08/06/22 Ordered By: Ajith Rivera Activity on Discharge: As tolerated Care Plan Goals: left against medical advised Health Concerns: left against medical advised Plan of Treatment: left against medical advised Assessment: left against medical advised Discharge Date/Time: 08/06/22 12:00
--- NOTE | 2022-08-06 12:00 | PC.NURSE ---
Patient arrived to ICU at 1000. Patient AOx4, no complaints of pain, SBP 90s-100s on arrival. Assessment otherwise unremarkable. Patient getting out of bed and attempting to leave room-patient stating I am going to leave, I do not need to be here . MD notified and at bedside to speak with patient. Patient continued to request to leave the hospital AMA. IVs and monitoring wires removed from patient. AMA paperwork discussed with patient- patient and dual nurse signatures obtained. Patient walked off unit at 1157.
--- NOTE | 2022-08-06 12:23 | MHC.CM.PN ---
CM assessment and d/c planning needs not completed d/t pt's leaving AMA.
== END 2022-08-06 12:00 | disposition home or self-care (01) | DRG 316 ==
LOC: HO.ED 06:25 → HO.EDOVER 08:15 → HO.ICU 08:48
PROVIDERS: Admitting Provider Internal Medicine Pulmonary Disease; Emergency Provider Emergency Medicine; PCP Internal Medicine; Visit Provider Internal Medicine Pulmonary Disease
DX: I95.9 Hypotension, unspecified (principal); I10 Essential (primary) hypertension; N40.0 Benign prostatic hyperplasia without lower urinary tract symptoms; D64.9 Anemia, unspecified; Z20.822 Contact with and (suspected) exposure to COVID-19; Z87.891 Personal history of nicotine dependence; Z79.899 Other long term (current) drug therapy
CPT/HCPCS: 0241U; 36415; 71045; 71260; 74177; 80048; 80076; 81003; 82272; 83690; 83735; 83880; 84100; 84484; 85025; 85379; 85610; 85730; 86850; 86900; 86901; 87040; 93005; 93306; 99285; J1643; Q9967